=== PATIENT | male | born 1970 | race Caucasian/White ===

== ENCOUNTER 2018-04-01 21:29 | Emergency (ER) | payer OTHER ==
[2018-04-01 21:37] VITALS: BP 142/86; PULSE 82; TEMP 98.6; BMI 32.1
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
== END 2018-04-01 22:43 | disposition home or self-care (01) ==
LOC: JERFT 21:29
DX: S39.012A Strain of muscle, fascia and tendon of lower back, initial encounter (principal); S16.1XXA Strain of muscle, fascia and tendon at neck level, initial encounter; V43.52XA Car driver injured in collision with other type car in traffic accident, initial encounter; Y92.488 Other paved roadways as the place of occurrence of the external cause; Y93.89 Activity, other specified; Y99.8 Other external cause status; I10 Essential (primary) hypertension; E78.5 Hyperlipidemia, unspecified
CPT/HCPCS: 99281-25